=== PATIENT | male | born 1950 | race Caucasian/White ===

== ENCOUNTER 2020-05-19 10:59 | Emergency (ER) | payer MEDICARE ==
--- NOTE | 2020-05-19 11:56 | RAD ---
PORTABLE CHEST: HISTORY: COVID positive. FINDINGS: Lungs are well aerated. No confluent infiltrate or consolidation. Hazy density in the left mid lung could potentially represent ground-glass infiltrative COVID pneumon ia. Heart and mediastinum unremarkable. No effusion. IMPRESSION: Question hazy infiltrate in the left mid lung. Followup recommended. POS: AGW
[2020-05-19 12:06] LABS: #Basophils 0.1 thou/uL (0.0-0.2); #Lymphocytes 1.6 thou/uL (1.20-3.40); #Monocytes 0.4 thou/uL (0.11-0.59); #Neutrophils 1.9 thou/uL (1.40-6.50); %Basophils 1.5 % (0.0-1.0); %Eosinophils 0.5 % (0.0-10.0); %Lymphocytes 40.9 % (21.0-51.0); %Neutrophils 48.1 % (42.0-75.0); Band 10 % (5-11); Hemoglobin 14.2 g/dL (14.0-18.0); Lymphocytes 28 % (21-51); MDiff Complete? YES; Mean Corpuscular HGB CONC 34.3 g/dL (32.0-36.0); Mean Corpuscular Hemoglobin 32.1 pg (27.0-31.0); Mean Corpuscular Volume 93.8 fL (78.0-98.0); Mean Platelet Volume 9.6 fL (7.4-10.4); Monocytes 8 % (0-10); Neutrophil 43 % (42-75); Platelet Count 59 thou/uL (130-400); RBC Distribution Width 12.2 % (11.5-14.5); RBC Morphology Normal; Reactive Lymphocytes 11 % (0-10); Red Blood Cell (RBC) Count 4.43 mill/uL (4.70-6.10); White Blood Cell (WBC) Count 3.9 thou/uL (4.8-10.8)
[2020-05-19 12:21] LABS: ALT (SGPT) 100 U/L (8-55); AST (SGOT) 132 U/L (5-34); Albumin 3.3 g/dL (3.4-4.8); Alkaline Phosphatase 68 U/L (40-110); Anion Gap 13 mmol/L (10-20); BUN (Urea Nitrogen) 15 mg/dL (8.4-25.7); Bilirubin, Total 0.8 mg/dL (0.2-1.2); Calc. Creatinine Clearance 0 mL/min (70-130); Carbon Dioxide 25 mmol/L (23-31); Chloride 103 mmol/L (98-107); Estimated GFR-MDRD 67; Globulin 3.1 g/dL (2.4-3.5); Glucose 88 mg/dL (83-110); Potassium 3.8 mmol/L (3.5-5.1); Protein, Total 6.4 g/dL (5.8-8.1); Sodium 137 mmol/L (136-145)
--- NOTE | 2020-05-23 17:10 | EKG ---
Test Reason : COVID Blood Pressure : / mmHG Vent. Rate : 074 BPM Atrial Rate : 074 BPM P-R Int : 182 ms QRS Dur : 144 ms QT Int : 428 ms P-R-T Axes : 039 -04 033 degrees QTc Int : 475 ms Normal sinus rhythm Right bundle branch block Abnormal ECG Confirmed by EFE GARCIA DO ([id number]), scientific publications editor MARY MERCADO ([id number]) on 05/23/2020 5:10:17 PM Referred By: JOSE Confirmed By:EFE GARCIA DO
== END 2020-05-19 13:43 | disposition home or self-care (01) ==
LOC: ERS 10:59
DX: U07.1 COVID-19 (principal); I10 Essential (primary) hypertension; Z79.899 Other long term (current) drug therapy
CPT/HCPCS: 71045; 80053; 84484; 85025; 93005